=== PATIENT | male | born 1955 | race Caucasian/White ===

== ENCOUNTER → 2018-11-14 07:12 | Outpatient (CLI) | payer OTHER, SELFPAY ==
[2018-11-14 08:04] LABS: Cholesterol 150 mg/dL (140-199); Glucose 99 mg/dL (80-110); HDL Cholesterol 53 mg/dL (40-60); LDL Cholesterol Calculated 79 mg/dL (<100); Triglycerides 92 mg/dL (35-150)
[2018-11-14 08:33] LABS: Prostate Specific Antigen Scrn 0.525 ng/mL (0.1-4.0)
== END ==
PROVIDERS: PCP Internal Medicine; Visit Provider Internal Medicine
DX: Z00.00 Encounter for general adult medical examination without abnormal findings (principal)
CPT/HCPCS: 36415; 80061; 82947; G0103

== ENCOUNTER 2018-11-17 15:21 | Inpatient (IN) | payer OTHER, SELFPAY ==
[2018-11-17] VITALS (10 sets, daily range): BP systolic 118–148; BP diastolic 74–101; PULSE 83–101; RESP 13–23; TEMP 36.6–37.1; O2SAT 94–98; BMI 33.6; BMI 38.5
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
[2018-11-17 15:43] LABS: Add Manual Diff / Slide Review NO; Basophils Absolute Auto 100 /uL (0-100); Basophils Percent Auto 0.7 % (0-2); Eosinophils Absolute Auto 100 /uL (0-450); Eosinophils Percent Auto 0.7 % (2-4); Hematocrit 45.5 % (41-53); Hemoglobin 14.6 g/dL (13.5-17.5); Lymphocytes Absolute Auto 3300 /uL (1100-4500); Mean Corpuscular Hemoglobin 27.1 PG (26-34); Mean Corpuscular Volume 84.6 fL (80-100); Monocytes Absolute Auto 900 /uL (0-900); Monocytes Percent Auto 6.4 % (3-14); Neutrophils Absolute Auto 9400 /uL (1500-7000); Neutrophils Percent Auto 68.2 % (50-75); Platelet Count 285 X10^3/uL (150-400); Red Blood Cell Count 5.38 X10^6/uL (4.5-5.9); Red Cell Distribution Width 14.4 % (11.6-14.8); White Blood Cell Count 13.8 X10^3/uL (4.5-11.0)
[2018-11-17 15:45] LABS: Prothrombin Time 11.8 SECONDS (10.1-12.7)
[2018-11-17 15:48] LABS: PTT Partial Thromboplastin Tim 25 SECONDS (26.4-36.2)
[2018-11-17 15:50] LABS: Alanine Aminotransferase 37 IU/L (21-72); Albumin 4.6 g/dL (3.5-5.0); Albumin Globulin Ratio 1.3 (1.0-2.8); Alkaline Phosphatase 75 U/L (38-126); Aspartate Aminotransferase 47 IU/L (17-59); BUN Creatinine Ratio 20.8 (6-22); Bilirubin Total 0.6 mg/dL (0.2-1.3); Blood Urea Nitrogen 25 mg/dL (9-20); Calcium 9.4 mg/dL (8.4-10.2); Carbon Dioxide 27 mmol/L (22-32); Chloride 106 mmol/L (98-107); Estimated Glomerular Filt Rate > 60.0 mL/min (>60); Ethanol (ETOH) < 10 mg/dL; Globulin 3.5 g/dL (1.7-4.1); Glucose 96 mg/dL (80-110); HEMOLYSIS 45 (0-50); Lipase 117 U/L (23-300); Potassium 3.8 mmol/L (3.4-5.1); Sodium 145 mmol/L (137-145); Total Protein 8.1 g/dL (6.3-8.2)
[2018-11-17] MEDS: fentaNYL 100 MCG/2 ML INJ IV (16:00)
[2018-11-17] MEDS: TET,DIPH,PERTUSS(ACELL),VAC/PF 0.5 ML SYRINGE IM (16:31)
[2018-11-17] MEDS: ALBUTEROL 2.5 MG/3 ML NEB (ADULT) INH (16:39)
[2018-11-17] MEDS: HYDROMORPHONE 1 MG INJ 0.5 MG IV (16:47)
--- NOTE | 2018-11-17 17:54 | DI.RAD.S_ITS ---
PROCEDURE: XR CLAVICLE LT INDICATIONS: ? fracture, 2 view please TECHNIQUE: 2 views of the clavicle were acquired. COMPARISON: CT chest, abdomen and pelvis from earlier same day. FINDINGS: Bones: There is fracture of the distal third left clavicle. Degenerative changes of the left acromioclavicular joint with preservation of the coracoclavicular and acromioclavicular intervals. No suspicious bony lesions. Soft tissues: No suspicious soft tissue calcifications. IMPRESSION: Mildly displaced distal third left clavicular fracture. Partially visualized left first and second rib fractures which are better characterized on CT from same day. Dictated by: Philippe Adorno M.D. on 11/17/2018 at 20:58 Approved by: Philippe Adorno M.D. on 11/17/2018 at 21:00
[2018-11-17] MEDS: HYDROMORPHONE 2 MG INJ 0.5 MG IV (18:25)
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
--- NOTE | 2018-11-17 19:00 | DI.RAD.S_ITS ---
PROCEDURE: XR CHEST 1V INDICATIONS: Follow-up pneumothorax. ?increase? TECHNIQUE: One view of the chest was acquired. COMPARISON: CT chest from same day. FINDINGS: Surgical changes and devices: None. Lungs and pleura: Diffuse interstitial prominence of the left hemithorax. Mild bibasilar atelectasis, worse on the left. Tiny left apical pneumothorax is better visualized on CT. Mediastinum: Mild prominence of the cardiac silhouette. The cardiomediastinal contours are otherwise unremarkable. Bones and chest wall: Multiple displaced rib fractures are noted in the left first, second, and third ribs. Fourth through seventh rib fractures are better seen on comparison CT. No suspicious bony lesions. Left chest wall subcutaneous emphysema.. IMPRESSION: 1. Multiple acute left-sided rib fractures which are better evaluated on comparison CT from same day. 2. Small left medial and apical pneumothorax is also better visualized on comparison CT. 3. Left chest wall subcutaneous emphysema. Dictated by: Philippe Adorno M.D. on 11/17/2018 at 21:06 Approved by: Philippe Adorno M.D. on 11/17/2018 at 21:10
[2018-11-17] MEDS: SODIUM CHLORIDE 0.9% 1,000 ML 125 ML IV (19:08)
[2018-11-17] MEDS: HYDROMORPHONE 2 MG INJ IV ×3 (19:09→22:08)
[2018-11-17] MEDS: GABAPENTIN 300 MG CAPSULE PO (21:30)
[2018-11-18] VITALS (12 sets, daily range): BP systolic 104–152; BP diastolic 54–103; PULSE 77–93; RESP 10–21; TEMP 37.1–37.3; O2SAT 87–98
[2018-11-18] MEDS: KETOROLAC 30 MG/ML VIAL IV ×3 (00:26→21:42)
[2018-11-18] MEDS: HYDROMORPHONE 2 MG INJ IV ×2 (02:03→05:42)
[2018-11-18] MEDS: SODIUM CHLORIDE 0.9% 1,000 ML 125 ML IV (05:26)
--- NOTE | 2018-11-18 06:00 | DI.RAD.S_ITS ---
PROCEDURE: XR CHEST 1V INDICATIONS: fu pneumothorax TECHNIQUE: One view of the chest was acquired. COMPARISON: [facility], CR, XR CHEST 1V, 11/17/2018, 18:57. FINDINGS: Surgical changes and devices: None. Lungs and pleura: There is interval improvement in left lung aeration with residual patchy airspace opacities scattered in upper and lower lung morley. Right lung is clear. No pleural effusion. Patient's known tiny left apical pneumothorax appears to be smaller on the current study. Mediastinum: There is tortuous thoracic aorta. Cardiac silhouette is enlarged. Bones and chest wall: No suspicious bony lesions. Overlying soft tissues appear unremarkable. IMPRESSION: Interval improvement in left lung aeration with decreased size of left-sided air space opacities. Tiny left apical pneumothorax, but it increased in size compared to previous study. Dictated by: Sage Polanco M.D. on 11/18/2018 at 8:30 Approved by: Sage Polanco M.D. on 11/18/2018 at 8:33
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
--- NOTE | 2018-11-18 07:56 | PC.NURSE ---
Addendum entered by Kirstin Lopez R.N. 11/18/18 14:47: Pt ambulated around nursing station several times, gait steady, reports pain to left side chest is tolerable 3/10. Denies dizziness and nausea, sats on RA 94%. Patient using I.S. getting up to 2000. Chin removed at 1430. Addendum entered by Kirstin Lopez R.N. 11/18/18 10:51: Patient bathed, sling placed to LUE, pt SBA to chair, gait steady. Pain tolerable with ambulation. Sats on RA 93% Addendum entered by Kirstin Lopez R.N. 11/18/18 10:05: Patient given 5mg oxycodone in anticipation of getting out of bed. Patient given IS and instructed on use. Sats on 2L 98% Original Note: Pt drowsy but easily aroused to voice, oriented. Pt denies pain at this time, given 2mg IVP dilaudid at 0540. LS diminished throughout, sats on 3L 94%. Romero nausea.
[2018-11-18] MEDS: ENOXAPARIN 40 MG/0.4 ML SYRINGE SUBCUT (08:39)
[2018-11-18] MEDS: ACETAMINOPHEN 325 MG TABLET 650 MG PO (08:40)
[2018-11-18] MEDS: SODIUM CHLORIDE 0.9% FLUSH 10 ML IV (08:40)
[2018-11-18] MEDS: GABAPENTIN 300 MG CAPSULE PO ×2 (08:40→20:04)
[2018-11-18] MEDS: OXYCODONE IR 5 MG TABLET 10 MG PO ×4 (09:58→20:06)
--- NOTE | 2018-11-18 12:45 | PM.PN.1 ---
Subjective Date Patient Seen: 11/18/18 Time Patient Seen: 12:45 Interval history: The patient has pain is left-sided specially with deep breathing. He is in a splint. Sitting up in a chair. Exam Vital Signs (past 8 hours): - 11/18/18 06:00 11/18/18 07:25 11/18/18 07:38 Temperature 98.8 F Pulse Rate 91 H 88 90 Respiratory Rate 16 10 L Blood Pressure 123/82 133/103 H Pulse Oximetry 94 94 11/18/18 07:41 11/18/18 10:14 11/18/18 11:05 Temperature Pulse Rate 83 77 Respiratory Rate 12 17 Blood Pressure 130/75 Pulse Oximetry 87 L 97 94 Oxygen Delivery Method Nasal Cannula Oxygen Flow Rate 1 Narrative Exam Narrative: Very difficult for me to here lung sounds on him. They seem to be equal. He has fair effort especially given what's going on in his chest wall. abdomen is soft nontender without mass Objective Labs Result Diagrams: 11/17/18 14:59 11/17/18 14:59 Labs: Laboratory Results - last 24 hr 11/17/18 11/17/18 11/17/18 14:59 14:59 14:59 WBC 13.8 H RBC 5.38 Hgb 14.6 Hct 45.5 MCV 84.6 MCH 27.1 MCHC 32.0 RDW 14.4 Plt Count 285 Neut % (Auto) 68.2 Lymph % (Auto) 24.0 L [place] % (Auto) 6.4 Eos % (Auto) 0.7 L Baso % (Auto) 0.7 Neut # (Auto) 9400 H Lymph # (Auto) 3300 [place] # (Auto) 900 Eos # (Auto) 100 Baso # (Auto) 100 PT 11.8 INR 1.0 APTT 25 L Sodium 145 Potassium 3.8 Chloride 106 Carbon Dioxide 27 BUN 25 H Creatinine 1.20 Estimated GFR > 60.0 BUN/Creatinine Ratio 20.8 Glucose 96 Calcium 9.4 Total Bilirubin 0.6 AST 47 ALT 37 Alkaline Phosphatase 75 Total Protein 8.1 Albumin 4.6 Globulin 3.5 Albumin/Globulin Ratio 1.3 Lipase 117 Nasal Screen MRSA (PCR) Ethyl Alcohol < 10 Blood Type Antibody Screen 11/17/18 11/17/18 14:59 22:15 WBC RBC Hgb Hct MCV MCH MCHC RDW Plt Count Neut % (Auto) Lymph % (Auto) [place] % (Auto) Eos % (Auto) Baso % (Auto) Neut # (Auto) Lymph # (Auto) [place] # (Auto) Eos # (Auto) Baso # (Auto) PT INR APTT Sodium Potassium Chloride Carbon Dioxide BUN Creatinine Estimated GFR BUN/Creatinine Ratio Glucose Calcium Total Bilirubin AST ALT Alkaline Phosphatase Total Protein Albumin Globulin Albumin/Globulin Ratio Lipase Nasal Screen MRSA (PCR) Negative for mrsa Ethyl Alcohol Blood Type O Positive Antibody Screen Negative Assessment & Plan Assessment & Plan narrative: Doing well. Not really any significant change in his chest x-ray. Will keep working on his breathing. Advance his diet. PTOT.
[2018-11-18] MEDS: SODIUM CHLORIDE 0.9% 1,000 ML 40 ML IV (14:16)
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
[2018-11-19] VITALS (13 sets, daily range): BP systolic 114–139; BP diastolic 44–80; PULSE 76–98; RESP 18–20; TEMP 36.6–38.2; O2SAT 88–96
[2018-11-19] MEDS: OXYCODONE IR 5 MG TABLET 10 MG PO ×4 (00:51→12:56)
[2018-11-19] MEDS: HYDROMORPHONE 2 MG INJ IV ×2 (01:34→07:43)
--- NOTE | 2018-11-19 06:05 | PC.NURSE ---
Patient sleeping in chair at beginning of shift, snoring, SpO2 >92% on 1L [place]. Woke at 0100, c/o pain to back, left ribs, and front of chest, same as it has been 02/22, 10mg oxycodone given per prn. At 0135, patient is restless and unable to get comfortable in chair, rates pain 10/10, no respiratory distress, SpO2 94%, 2mg IV Dilaudid given per prn. Attempt to void while sitting at edge of chair, then stood at side of bed with assist, not able to void, will reassess, encouraged fluids, NS infusing at 40ml/hr. When patient is back in bed and sleeping, he desatted to 80s, placed him up to 5L humidified NC to keep sats >92% until 030, then able to decrease O2 to 2L by am. VSS.
[2018-11-19] MEDS: KETOROLAC 30 MG/ML VIAL IV ×3 (07:42→19:36)
[2018-11-19] MEDS: ENOXAPARIN 40 MG/0.4 ML SYRINGE SUBCUT (07:42)
[2018-11-19] MEDS: GABAPENTIN 300 MG CAPSULE PO ×2 (07:42→19:35)
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
[2018-11-19] MEDS: SODIUM CHLORIDE 0.9% 1,000 ML 40 ML IV (14:41)
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
[2018-11-19] MEDS: BISACODYL 5 MG TABLET PO (16:16)
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
[2018-11-19] MEDS: SODIUM CHLORIDE 0.9% FLUSH 10 ML IV (19:35)
--- NOTE | 2018-11-19 23:26 | PC.NURSE ---
Patient had nausea and 1x emesis this shift. Physician updated and aware. No resting peacefully in bed without nausea.
--- NOTE | 2018-11-20 | DI.RAD.S_ITS ---
PROCEDURE: XR CHEST 2V INDICATIONS: f/u hemopneumothorax /rib fxs TECHNIQUE: 2 views of the chest were acquired. COMPARISON: [facility], CT, CT CHEST ABD PEL W CON, 11/17/2018, 15:36. [facility], CR, XR CHEST 1V, 11/18/2018, 5:41. FINDINGS: Surgical changes and devices: None. Lungs and pleura: Small apical pneumothorax is noted. Small left pleural effusion likely representing a hemothorax. Patchy opacities along the periphery of the left hemithorax likely representing combination of atelectasis and possible pulmonary contusion given numerous overlying rib fractures. The right lung appears clear. Mediastinum: Mediastinal contours are normal. Heart size is normal. Bones and chest wall: Multiple sequential left-sided rib fractures are again noted and better evaluated on comparison CT. Comminuted left scapular fracture as before. Healed fracture deformity of the right clavicle. Left clavicular fracture also better evaluated on comparison CT. No suspicious bony abnormalities. Soft tissues appear unremarkable. IMPRESSION: 1. Small apical pneumothorax. 2. Multiple acute, displaced left-sided rib fractures which are better evaluated on recent CT dated 11/18/2018. 3. Small left pleural effusion likely representing a hemothorax. 4. Diffuse peripheral left hemithorax opacities likely representing combination of pulmonary contusions and atelectasis. Dictated by: Philippe Adorno M.D. on 11/20/2018 at 13:40 Approved by: Philippe Adorno M.D. on 11/20/2018 at 13:46
[2018-11-20 00:29] VITALS: BP 133/86; PULSE 77; RESP 20; TEMP 35.9; O2SAT 99
[2018-11-20] MEDS: KETOROLAC 30 MG/ML VIAL IV ×2 (01:50→08:37)
[2018-11-20 04:55] VITALS: BP 116/83; PULSE 68; RESP 20; TEMP 36.7; O2SAT 97
[2018-11-20 06:21] LABS: Add Manual Diff / Slide Review NO; Basophils Absolute Auto 0 /uL (0-100); Basophils Percent Auto 0.4 % (0-2); Eosinophils Absolute Auto 300 /uL (0-450); Eosinophils Percent Auto 2.4 % (2-4); Hematocrit 36.2 % (41-53); Hemoglobin 11.8 g/dL (13.5-17.5); Lymphocytes Absolute Auto 1600 /uL (1100-4500); Lymphocytes Percent Auto 13.8 % (25-40); Mean Corpuscular HGB Conc 32.5 % (30-36); Mean Corpuscular Hemoglobin 27.6 PG (26-34); Monocytes Absolute Auto 900 /uL (0-900); Neutrophils Absolute Auto 8900 /uL (1500-7000); Neutrophils Percent Auto 75.4 % (50-75); Platelet Count 167 X10^3/uL (150-400); Red Blood Cell Count 4.26 X10^6/uL (4.5-5.9); Red Cell Distribution Width 14.2 % (11.6-14.8); White Blood Cell Count 11.8 X10^3/uL (4.5-11.0)
--- NOTE | 2018-11-20 06:23 | PC.NURSE ---
Patient was able to rest in bed better overnight, 30mg IV Toradol given once for pain. Placed on RA at 0300, SpO2 stayed >92%, no respiratory distress. Barrier cream to erythema on buttocks, repositions independently.
[2018-11-20 07:29] VITALS: BP 139/91; PULSE 66; RESP 18; TEMP 36.9; O2SAT 94
[2018-11-20] MEDS: GABAPENTIN 300 MG CAPSULE PO (08:37)
[2018-11-20] MEDS: ENOXAPARIN 40 MG/0.4 ML SYRINGE SUBCUT (08:37)
[2018-11-20] MEDS: SODIUM CHLORIDE 0.9% FLUSH 10 ML IV (08:37)
[2018-11-20] MEDS: OXYCODONE IR 5 MG TABLET 10 MG PO ×3 (08:40→15:04)
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
--- NOTE | 2018-11-20 11:43 | PT.IPTN ---
Current Diagnoses Pneumothorax, unspecified (11/17/18) Multiple fractures of ribs, left side, initial encounter for closed fracture (11/17/18) Fracture of unspecified part of unspecified clavicle, initial encounter for closed fracture (11/17/18) Fracture of unspecified part of scapula, left shoulder, initial encounter for closed fracture (11/17/18) Physical Therapy Treatment Note M2 PT-IP Current Condition Start: 11/19/18 12:01 Freq: NEEDED Status: Active Protocol: Document 11/19/18 11:19 AB (Rec: 11/19/18 12:25 AB [id number]) Physical Therapy Current Condition Current Condition Evaluation Date 11/19/18 Treatment Diagnosis L rib fxs; L clavicle & scapular fx; pneumothorax; difficulty in walking Onset Date 11/17/18 Precautions Brace LUE sling Weight Bearing Status Weight Bearing Status Non-Weight Bearing Allowed Weight Bearing Amount (enter % LUE NWB or #) (%) M3 PT-IP Subjective Start: 11/19/18 12:01 Freq: NEEDED Status: Active Protocol: Document 11/20/18 11:30 SA (Rec: 11/20/18 11:43 SA [id number]) Subjective Physical Therapy Visit Type Type Treatment Note Visit Start Time 11:05 Visit Stop Time 11:30 Total Visit Minutes 25 Number of ACETYLENE BURNER Visits 1 Physical Therapy Visit Comments Patient Comments Pt with in room and ready for PT/caregiver training. Patient Goals To return home with . Therapy Pain Assessment Pain When Pain Assessed During Mobility Pain Present Pain Present Pain Reported Location left side of chest and back Intensity 2 Scale Used Numeric (1 - 10) Pain Management Techniques Apply Cold Timing of Activity with Medications M4 PT-IP Mobility and Gait Start: 11/19/18 12:01 Freq: NEEDED Status: Active Protocol: Document 11/20/18 11:30 SA (Rec: 11/20/18 11:43 SA [id number]) PT-Bed Mobility Assessment Rolling Type of Rolling Roll to Right Level of Assist Contact Guard Assistance Supine to Sit Supine to Sit Contact Guard Assistance Sit to Supine Sit to Supine Standby Assistance Scooting Scooting to Edge of Bed Standby Assistance Scooting Up and Down in Bed Standby Assistance PT-Transfer Assessment Sit to and From Stand Sit to and from Stand Standby Assistance Equipment Transfer Assistive Device None Gait Belt Orthotic/Prosthetic Devices or Brace: Yes Transfers Transfer Destination Bed Chair Transfer Technique Stand Step Pivot Transfer Ability Level of Assist Standby Assistance Contact Guard Assistance 1 Person Assistance Comments Mobility Comments Pt plans to sleep on recliner at home, LUE in sling. Education with for donning/doffing UE sling. Pt SBA-CGA for bed mobility and transfers. min cues for safety and LUE NWB precation. Gait Assessment Gait Gait Assistance Required: Standby Assistance Distance (Feet) 200 Able to Maintain Weight Bearing Status Yes During Gait Assistive Devices Assistive Device None Gait Belt Orthotic/Prosthetic Devices or Brace: Yes Gait Deviations General Gait Pattern Ataxic Wide Based Gait Factors Limiting Gait Function Factors Limiting Gait Function Decreased Activity Tolerance Decreased Strength Comments Gait Comments Pt ambulates safely with no AD and SBA, wide based gait which is base line for him, 02 sats 90-92% on RA with activity. receptive to caregiver training, understands NWB precation and how to don/doff sling. Stair Climbing Assessment Evaluation Level of Assist On Stairs Standby Assistance Devices Stair Climbing Assistive Devices None Technique/Endurance Stair Climbing Direction Ascend and Descend Stair Climbing Technique Step to Step Number of Steps Climbed 1 Query Text: Stair Climbing Set # Repetitions (reps) 6 Comments Stair Climbing Comments Use of single step and no AD or rail wth SBA and Min cues for safety, completed up/down 6x in a row with no LOB. Pt has single step to enter home and is single level. PT-Balance Assessment Standing Balance and Reactions Static Standing Balance Ability Good Dynamic Standing Balance Ability Good Device Used without AD M5 PT-IP Objective Assessments Start: 11/19/18 12:01 Freq: NEEDED Status: Active Protocol: Document 11/19/18 11:19 AB (Rec: 11/19/18 12:25 AB [id number]) Orientation Orientation/Cognition Level of Alertness Alert Orientation Name Age Birthday Month Date Year Day of Week Place Situation Safety Awareness Understands Safety Issues Memory Description No Deficits Noted Gross Range of Motion Lower Extremity ROM Assessment Within Functional Limits Strength Lower Extremity Strength Assessment Within Functional Limits Coordination Assessment Gross Coordination Gross Coordination WNL Sensation Assessment Sensation Gross Sensation WNL Muscle Tone Muscle Tone WNL Yes M6 PT-IP Treatment Start: 11/19/18 12:01 Freq: NEEDED Status: Active Protocol: Document 11/20/18 11:30 (Rec: 11/20/18 11:43 [id number]) Physical Therapy Treatment Exercises Exercises Ankle Pumps Gluteal Sets Education Education Provided Precautions Safety Brace Education Donning [place]duck Caregiver Other Treatments Other Treatment Performed Caregiver training with sling, stairs, transfers and safe gait. M7 PT-IP Assessment and Plan Start: 11/19/18 12:01 Freq: NEEDED Status: Active Protocol: Document 11/20/18 11:30 (Rec: 11/20/18 11:43 [id number]) PT Summary Assessment and Plan Summary Assessment Summary Pt progressing well, pain levels low and SBA-CGA with all mobility tasks. present for caregiver training and is receptive to education . Pt has all needed equipment and anticipate d/c home with soon. Frequency of Treatment Frequency Of Treatment Once a Day Treatment Plan Physical Therapy Treatment Plan Bed Mobility Training Transfer Training Gait Training Therapeutic Exercise Balance Retraining Post Op Education Discharge Planning Hot or Cold Pack Neuromuscular Re-ed Coordination Retraining Manual Therapy Recommendations To Nursing Amount of Assist Needed Standby Assistance Discharge Recommendations PT Discharge Recommendations Home with Assistance
--- NOTE | 2018-11-20 14:40 | OT.IP.TRT ---
Current Diagnoses Pneumothorax, unspecified (11/17/18) Multiple fractures of ribs, left side, initial encounter for closed fracture (11/17/18) Fracture of unspecified part of unspecified clavicle, initial encounter for closed fracture (11/17/18) Fracture of unspecified part of scapula, left shoulder, initial encounter for closed fracture (11/17/18) Occupational Therapy Treatment Note M3 OT- IP Subjective and Pain Start: 11/19/18 14:05 Freq: Status: Active Protocol: Document 11/20/18 14:40 PJM (Rec: 11/20/18 16:27 PJM [id number]) OT- Subjective Occupational Therapy Visit Type Type Treatment Note Visit Start Time 14:00 Visit Stop Time 14:40 Total Visit Minutes 40 Notes here for education this session. Occupational Therapy Visit Comments Patient Comments I can't wait to get home to my own bathroom. Patient/Caregiver Goals to go home today OT Pain Assessment Pain When Pain Assessed After Treatment Pain Present Pain Present Pain Reported Location left side of chest and back Intensity 3 Scale Used Numeric (1 - 10) Description Aching Acute M4 OT- IP ADL's Start: 11/19/18 14:05 Freq: Status: Active Protocol: Document 11/20/18 14:40 PJM (Rec: 11/20/18 16:27 PJM [id number]) OT [id number] General Evaluation Self-Feeding Ability Independent OT ADL-Grooming General Evaluation Grooming Ability Independent Areas Needing Assistance Face Washing Comments OT Grooming Comments standing at sink OT ADL-Oral Care General Eval Oral Care Ability Independent Comments Oral Care Comments standing at sink OT ADL-Dressing General Eval Upper Body Dressing Ability Maximum Assistance Lower Body Dressing Ability Maximum Assistance Areas Needing Assistance Button-Up Shirt/Blouse Pants/Shorts Socks Comments OT Dressing Comments Pt and educated re: upper and lower body dressing techniques with emphasis on LUE shoulder precautions due to clavicle and scapula fx's. able to assist pt appropriately with donning and doffing L sling. Pt able to direct PRN and they work well together. OT ADL-Toileting General Evaluation Toileting Ability Moderate Assistance Areas Needing Assistance Empty Catheter or Colostomy Manage Clothing Perform Perineal Hygiene Devices Toileting Assistive Devices Toilet Paper Aid Urinal Comments OT Toileting Comments Pt needs mod assist to pull shorts up on L hip due to LUE in sling and painful L rib fx' s. Pt will use urinal at night at home. Provided education and resource information re: toilet paper aids as pt cannot reach for roxanne care after bowel movement. OT ADL-Bathing Devices Bathing Equipment Shower Chair without Arms Comments OT Bathing Comments to assist PRN at home with washing and drying.Provided education re: movement precautions for L shoulder. Educated pt/ re: methods to keep L armpit dry while arm in sling. They have shower seat at home. M5 OT- IP IADL's Start: 11/19/18 14:05 Freq: Status: Active Protocol: Document 11/20/18 14:40 PJM (Rec: 11/20/18 16:27 [facility] [id number]) OT-Instrumental Activities of Daily Living Deficits IADL Deficits Identified Deficits Home Safety Awareness Awareness of Need for Assistance at Home Good Awareness Ability to Problem Solve Emergency Able to Problem Solve Situations Medication Management Medication Management No Deficits Identified Money Management Money Management No Deficits Identified Meal Preparation Meal Preparation Caregiver Provides Assist Meal Preparation Comments Supportive to assist until pt able. Senior Risk Manager Senior Risk Manager Caregiver Provides Assist Senior Risk Manager Comments Supportive to assist until pt able. Driving Driving Caregiver Provides Assist Driving Comments Supportive to assist until pt able. M6 OT- IP Functional Cognition Start: 11/19/18 14:05 Freq: Status: Active Protocol: Document 11/20/18 14:40 PJM (Rec: 11/20/18 16:27 [facility] [id number]) Cognitive Factors Limiting Selfcare Function Cognitive Ability Level of Alertness Alert Patient Orientation Name Age Birthday Month Date Year Day of Week Place Situation Attention Span Ability Capable of Focused Attention Capable of Sustained Attention Ability to Follow Commands Able to Follow Multi-Step Commands Memory Description No Deficits Noted Problem Solving Ability No deficits Noted Executive Function Ability No Deficits Noted Cognitive Comments Cognitive Assessment Comments Pt asking appropriate questions about adapted ADL techniques. M7 OT- IP Mobility and Balance Start: 11/19/18 14:05 Freq: Status: Active Protocol: Document 11/20/18 14:40 PJM (Rec: 11/20/18 16:27 [facility] [id number]) OT-Transfer Assessment Sit to and From Stand Sit to and from Stand Standby Assistance Transfers Transfer Ability Standby Assistance Technique Transfer Destination Chair Devices Transfer Assistive Devices Gait Belt Comments Mobility Comments will use gait belt to assist PRN at home. OT- Gait Assessment Comments Gait Ability Comments see P.T. notes OT- Balance Assessment Standing Balance and Reactions Static Standing Balance Ability Good Dynamic Standing Balance Ability Good Comments Other Balance Tests/Deviations/Treatment during lower body dressing : M8 OT- IP Objective Assessments Start: 11/19/18 14:05 Freq: Status: Active Protocol: Document 11/20/18 14:40 PJM (Rec: 11/20/18 16:27 PJ [id number]) OT Gross Range of Motion Upper Extremity Range of Motion Assessment Right Impaired ROM Impairments R shoulder NT due to fx's. Pt educated re: distal RUE AROM exercises when sling is off for dressing or showering including R elbow flex/ext, forearm pron/ supination, wrist flex/ext, and full finger flex/ext x 10 reps. AROM WFL in distal RUE. Pt reports snapping feeling in R elbow with full flexion x1 this session. He will discuss with MD during follow up appointment. OT Sensation Assessment Edema Edema Present Edema Comments Min edema noted in R hand. Pt educated re: fist pumping 10x every hour while in sling to decreased swelling. M9 OT- IP Assessment and Plan Start: 11/19/18 14:05 Freq: Status: Active Protocol: Document 11/20/18 14:40 PJM (Rec: 11/20/18 16:27 PJ [id number]) OT Summary Assessment and Plan Potential Rehabilitation Potential Excellent Summary Progress Towards Goals Safe For Discharge Goals Met Assessment Summary Pt/ verbalize and demonstrate understanding of all education and LUE precuations. Pt can direct PRN and they work well together as a team. Pt stoic about pain with few complaints. All OT goals achieved for this admission and pt plans to d/c home today with 24 hr assist from supportive,capable . No further OT services needed. Frequency of Treatment Frequency Of Treatment Discharge Discharge Recommendations OT Discharge Recommendations Home with 05/02 Assist
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
== END 2018-11-20 15:06 | disposition home or self-care (01) | DRG 183 ==
LOC: ED 15:34 → ICU 17:09
PROVIDERS: Admitting Provider Specialist; Emergency Provider Emergency Medicine; PCP Internal Medicine; Visit Provider Specialist
DX: S22.42XA Multiple fractures of ribs, left side, initial encounter for closed fracture (principal); S27.2XXA Traumatic hemopneumothorax, initial encounter; S22.31XA Fracture of one rib, right side, initial encounter for closed fracture; S42.035A Nondisplaced fracture of lateral end of left clavicle, initial encounter for closed fracture; S42.115A Nondisplaced fracture of body of scapula, left shoulder, initial encounter for closed fracture; V86.56XA Driver of dirt bike or motor/cross bike injured in nontraffic accident, initial encounter; E66.9 Obesity, unspecified; Z68.39 Body mass index [BMI] 39.0-39.9, adult; Z23 Encounter for immunization; I45.10 Unspecified right bundle-branch block
CPT/HCPCS: 36415; 70450; 71045; 71046; 71260; 72125; 72170; 73000; 74177; 80053; 80320; 83690; 85025; 85610; 85730; 86850; 86900; 86901; 87797; 90471; 93005; 94760; 94762; 96374; 96375; 96376; 97116; 97161; 97165; 97530; 97535; 99283; 99291; 99292; 90715; G0390; J1170; J1650; J1885; J3010; J7613; Q9967

== ENCOUNTER 2018-11-23 09:12 | Emergency (ER) | payer OTHER, SELFPAY ==
[2018-11-17 19:36] VITALS: BMI 38.5
[2018-11-23 09:15] VITALS: BP 165/96; PULSE 70; RESP 18; TEMP 36.4; O2SAT 95
[2018-11-23 09:22] VITALS: PULSE 72
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
[2018-11-23] MEDS: ONDANSETRON 4 MG ODT SL (09:58)
[2018-11-23 10:13] LABS: Add Manual Diff / Slide Review NO; Basophils Absolute Auto 0 /uL (0-100); Basophils Percent Auto 0.4 % (0-2); Eosinophils Absolute Auto 400 /uL (0-450); Eosinophils Percent Auto 4.8 % (2-4); Hematocrit 37.1 % (41-53); Hemoglobin 12.2 g/dL (13.5-17.5); Lymphocytes Absolute Auto 1000 /uL (1100-4500); Lymphocytes Percent Auto 11.6 % (25-40); Mean Corpuscular HGB Conc 32.9 % (30-36); Mean Corpuscular Hemoglobin 27.7 PG (26-34); Mean Corpuscular Volume 84.4 fL (80-100); Monocytes Absolute Auto 600 /uL (0-900); Monocytes Percent Auto 6.8 % (3-14); Neutrophils Absolute Auto 6700 /uL (1500-7000); Neutrophils Percent Auto 76.4 % (50-75); Platelet Count 224 X10^3/uL (150-400); Red Blood Cell Count 4.39 X10^6/uL (4.5-5.9); Red Cell Distribution Width 14.2 % (11.6-14.8); White Blood Cell Count 8.7 X10^3/uL (4.5-11.0)
[2018-11-23 10:24] LABS: Alanine Aminotransferase 60 IU/L (21-72); Albumin 3.9 g/dL (3.5-5.0); Albumin Globulin Ratio 1.2 (1.0-2.8); Alkaline Phosphatase 51 U/L (38-126); Aspartate Aminotransferase 58 IU/L (17-59); BUN Creatinine Ratio 16.3 (6-22); Bilirubin Total 0.7 mg/dL (0.2-1.3); Blood Urea Nitrogen 13 mg/dL (9-20); Calcium 9.2 mg/dL (8.4-10.2); Carbon Dioxide 33 mmol/L (22-32); Chloride 97 mmol/L (98-107); Creatine Kinase 329 U/L (55-170); Estimated Glomerular Filt Rate > 60.0 mL/min (>60); Globulin 3.2 g/dL (1.7-4.1); Glucose 104 mg/dL (80-110); HEMOLYSIS < 15 (0-50); Potassium 4.9 mmol/L (3.4-5.1); Sodium 139 mmol/L (137-145); Total Protein 7.1 g/dL (6.3-8.2)
[2018-11-23 10:32] LABS: B Type Natriuretic Peptide < 100 (<100)
[2018-11-23 10:35] LABS: Troponin I < 0.012 ng/mL (0.01-0.034)
[2018-11-23 10:40] LABS: CKMB % Relative Index 0.5 % (1.5-5.0); Creatine Kinase MB 1.69 ng/mL (<2.37)
[2018-11-23 11:30] VITALS: BP 122/75; PULSE 67; RESP 16; O2SAT 94
[2018-11-23 13:11] VITALS: BP 144/93; PULSE 74; RESP 20; O2SAT 92
== END 2018-11-23 13:12 | disposition home or self-care (01) ==
PROVIDERS: Emergency Provider Emergency Medicine; PCP Internal Medicine
DX: S27.0XXD Traumatic pneumothorax, subsequent encounter (principal); S42.009D Fracture of unspecified part of unspecified clavicle, subsequent encounter for fracture with routine healing; S22.42XD Multiple fractures of ribs, left side, subsequent encounter for fracture with routine healing; S42.102D Fracture of unspecified part of scapula, left shoulder, subsequent encounter for fracture with routine healing; V89.2XXD Person injured in unspecified motor-vehicle accident, traffic, subsequent encounter
CPT/HCPCS: 36415; 71046; 80053; 82550; 82553; 83880; 84484; 85025; 93005; 93010; 93970; 99282; 99285